=== PATIENT | male | born 1970 | race Caucasian/White ===

== ENCOUNTER 2019-06-02 13:10 | Outpatient (CLI) ==
[2019-05-08 12:11] VITALS: BMI 35.2
--- NOTE | 2019-06-02 15:11 | DI ---
EXAM: Three views of the right elbow. History: Right elbow pain. Findings: No acute fracture or dislocation. No joint effusion. 1.5 cm olecranon enthesiophyte. Impression: 1. No acute osseous abnormality. 2. Large olecranon enthesiophyte
== END 2019-06-02 13:11 | disposition home or self-care (01) ==
LOC: RAD 13:10
PROVIDERS: ATTEND Physician Assistant
DX: M25.521 Pain in right elbow (principal)